=== PATIENT | male | born 1935 | race Caucasian/White ===

== ENCOUNTER → 2016-05-28 | Outpatient (REF) ==
[2016-05-28 15:36] LABS: THYROID STIMULATING HORMONE 2.18 uIU/mL (0.465-4.680)
[2016-05-28 16:18] LABS: PSA-TOTAL 1.12 ng/mL (0-4)
== END ==
LOC: ZLAB.WCH 14:44
PROVIDERS: Internal Medicine
DX: Z01.89 Encounter for other specified special examinations (principal)
CPT/HCPCS: G0103